=== PATIENT | female | born 1975 | race African-American/Black ===

== ENCOUNTER 2023-01-15 19:45 | Emergency (ER) | payer OTHER ==
[~2023-01-15] VITALS: Ht 170.2 cm; Wt 75.0 kg
[~2023-01-15 19:45] MED LIST: INSULIN
[2023-01-15 20:03] VITALS: BP 114/79; PULSE 91; RESP 16; TEMP 98.4; O2SAT 99
[2023-01-15 23:35] LABS: BASOPHILS % 0.9 % (0.0-2.0); EOSINOPHILS % 2.1 % (0.0-5.0); HEMATOCRIT. 33.6 % (36.0-48.0); HEMOGLOBIN. 10.6 g/dL (12.0-16.0); LYMPHOCYTES % 44.7 % (20.0-50.0); MEAN CORPUSCULAR HEMOGLOBIN 27.6 pg (28.0-32.0); MEAN CORPUSCULAR HGB CONC 31.4 g/dL (31.0-37.0); MEAN CORPUSCULAR VOLUME 87.7 fL (81.0-99.0); MEAN PLATELET VOLUME 8.2 fl (7.4-10.4); NEUTROPHILS % 44.3 % (40.0-76.0); PLATELET 270 x1000/uL (130-400); RED BLOOD CELL COUNT 3.83 mill/uL (4.2-5.4); RED CELL DISTRIBUTION WIDTH 18.5 % (11.6-14.6); WHITE BLOOD COUNT 4.6 x1000/uL (4.5-11.0)
[2023-01-16 00:06] LABS: ALANINE AMINOTRANSFERASE < 7 IU/L (10-49); ALBUMIN 4.1 g/dL (3.2-4.8); ASPARTATE AMINOTRANSFERASE 12 IU/L (<34); BILIRUBIN TOTAL 0.2 mg/dL (0.1-1.0); CALCIUM 9.7 mg/dL (8.7-10.4); CARBON DIOXIDE 31 mEq/L (21-32); CHLORIDE 106 mEq/L (98-107); CREATININE 0.9 mg/dL (0.6-1.0); GLUCOSE 97 mg/dL (70-105); POTASSIUM 3.9 mEq/L (3.5-5.1); PROTEIN TOTAL 7.5 g/dL (6.0-8.3); SODIUM 141 mEq/L (136-145); UREA NITROGEN BLOOD 17 mg/dL (9-23)
[2023-01-16] MEDS ORDERED: IBUPROFEN 600MG TABLET PO STA (01:35)
[2023-01-16] MEDS ORDERED: HYDR-4001 MT (04:23)
[2023-01-16] MEDS ORDERED: NAPR-1176 MT (04:23)
[2023-01-16 07:24] LABS: CLARITY URINE CLEAR (CLEAR); COLOR URINE YELLOW (YELLOW); SPECIFIC GRAVITY URINE 1.025 (1.005-1.030)
[2023-01-16 07:25] LABS: GLUCOSE URINE NEGATIVE (NEGATIVE); KETONES URINE NEGATIVE (NEGATIVE); LEUKOCYTE ESTERASE URINE NEGATIVE (NEGATIVE); NITRITE URINE NEGATIVE (NEGATIVE); OCCULT BLOOD URINE NEGATIVE (NEGATIVE); PROTEIN URINE NEGATIVE (NEGATIVE); UROBILINOGEN URINE 0.2 E.U./dL (0.2-1.0)
== END 2023-01-16 05:27 | disposition home or self-care (01) ==
LOC: ER 19:57
DX: S02.2XXA Fracture of nasal bones, initial encounter for closed fracture (principal); F12.90 Cannabis use, unspecified, uncomplicated; V98.8XXA Other specified transport accidents, initial encounter; Y93.89 Activity, other specified; Y92.89 Other specified places as the place of occurrence of the external cause; Y99.8 Other external cause status
CPT/HCPCS: 36415; 74176; 80053; 81003; 85025; 99284

== ENCOUNTER 2023-08-03 11:43 | Emergency (ER) | payer MEDICAID ==
[~2023-08-03] VITALS: Ht 162.6 cm; Wt 61.0 kg
[~2023-08-03 11:43] MED LIST changes: +HYDR-4001 MT; +NAPR-1176 MT
[2023-08-03 12:06] VITALS: TEMP 98.4
[2023-08-03 12:26] LABS: BASOPHILS % 0.6 % (0.0-2.0); DIFFERENTIAL COMMENT 0; EOSINOPHILS % 0.9 % (0.0-5.0); HEMATOCRIT. 27.4 % (36.0-48.0); HEMOGLOBIN. 8.7 g/dL (12.0-16.0); LYMPHOCYTES % 28.9 % (20.0-50.0); MEAN CORPUSCULAR HEMOGLOBIN 25.1 pg (28.0-32.0); MEAN CORPUSCULAR HGB CONC 31.9 g/dL (31.0-37.0); MEAN CORPUSCULAR VOLUME 78.8 fL (81.0-99.0); MEAN PLATELET VOLUME 7.9 fl (7.4-10.4); MONOCYTES % 6.8 % (2.0-8.0); NEUTROPHILS % 62.8 % (40.0-76.0); PLATELET 265 x1000/uL (130-400); RED BLOOD CELL COUNT 3.48 mill/uL (4.2-5.4); RED CELL DISTRIBUTION WIDTH 18.2 % (11.6-14.6)
[2023-08-03 12:36] LABS: CHLORIDE 105 mEq/L (98-107); SODIUM 136 mEq/L (136-145)
[2023-08-03 12:37] LABS: CARBON DIOXIDE 26 mEq/L (21-32)
[2023-08-03 12:42] LABS: CREATININE 0.8 mg/dL (0.6-1.0); GLUCOSE 107 mg/dL (70-105); UREA NITROGEN BLOOD 8 mg/dL (9-23)
[2023-08-03 12:44] LABS: ALANINE AMINOTRANSFERASE < 7 IU/L (10-49); ALBUMIN 3.9 g/dL (3.2-4.8); ASPARTATE AMINOTRANSFERASE 16 IU/L (<34); BILIRUBIN TOTAL 0.2 mg/dL (0.1-1.0); PROTEIN TOTAL 7.1 g/dL (6.0-8.3)
[2023-08-03 13:04] LABS: INR 0.9; PROTHROMBIN TIME 10.2 sec (9.6-11.0)
[2023-08-03 13:25] LABS: CLARITY URINE CLOUDY (CLEAR); COLOR URINE YELLOW (YELLOW); GLUCOSE URINE NEGATIVE (NEGATIVE); KETONES URINE NEGATIVE (NEGATIVE); LEUKOCYTE ESTERASE URINE 2+ (NEGATIVE); NITRITE URINE NEGATIVE (NEGATIVE); OCCULT BLOOD URINE 3+ (NEGATIVE); PROTEIN URINE TRACE (NEGATIVE); SPECIFIC GRAVITY URINE 1.014 (1.005-1.030); UROBILINOGEN URINE 0.2 E.U./dL (0.2-1.0)
[2023-08-03] MEDS ORDERED: IOHEXOL-300 100 ML BOTTLE ONE (13:52)
[2023-08-03 13:58] LABS: SQUAMOUS EPITHELIAL CELL URINE 2+ /lpf (RARE/1+)
[2023-08-03 13:59] LABS: BACTERIA URINE 4+; RBC URINE 0-2 /hpf (0-2)
[2023-08-03] MEDS: CEPHALEXIN 250MG CAPSULE PO ONE (14:42)
[2023-08-03] MEDS ORDERED: NITR-87 MT (16:02)
[2023-08-03] MEDS ORDERED: METR-167 MT (16:02)
[2023-08-03 16:26] VITALS: BP 128/82; PULSE 78; RESP 18
[2023-08-03] MEDS: HYDROCODONE/ACETAMINOPHEN 10/325MG TABLET PO ONE (16:26)
== END 2023-08-03 16:31 | disposition left against medical advice (07) ==
LOC: ER 13:33
DX: M25.561 Pain in right knee (principal); N89.8 Other specified noninflammatory disorders of vagina; R10.30 Lower abdominal pain, unspecified; F12.10 Cannabis abuse, uncomplicated
CPT/HCPCS: 80053; 81003; 81025; 83690; 85025; 85610; 87210; 36415; 73560; 74177; 76856; 99285; 87591; Q9967; Z7610